=== PATIENT | male | born 1965 | race Caucasian/White ===

== ENCOUNTER 2020-03-16 02:41 | Emergency (ER) | payer BC, SELFPAY ==
[2020-03-16] MEDS ORDERED: Ondansetron PF 4 MG/2 ML Vial ONE (03:13)
[2020-03-16] MEDS ORDERED: Ketorolac Tromethamine 30 MG/ML VIAL ONE (03:13)
[2020-03-16] MEDS ORDERED: Morphine 4 MG/ML VIAL ONE (03:13)
[2020-03-16 03:40] LABS: #Basophils 0.1 thou/uL (0.0-0.2); #Eosinphils 0.4 thou/uL (0.0-0.7); #Monocytes 0.7 thou/uL (0.11-0.59); %Basophils 0.8 % (0.0-1.0); %Eosinophils 4.6 % (0.0-10.0); %Lymphocytes 24.4 % (21.0-51.0); %Monocytes 8.3 % (0.0-10.0); %Neutrophils 61.8 % (42.0-75.0); Hemoglobin 15.2 g/dL (14.0-18.0); Mean Corpuscular HGB CONC 34.5 g/dL (32.0-36.0); Mean Corpuscular Hemoglobin 31.4 pg (27.0-31.0); Mean Corpuscular Volume 90.9 fL (78.0-98.0); Mean Platelet Volume 7.7 fL (7.4-10.4); Platelet Count 257 thou/uL (130-400); RBC Distribution Width 12.3 % (11.5-14.5); Red Blood Cell (RBC) Count 4.84 mill/uL (4.70-6.10); White Blood Cell (WBC) Count 8.1 thou/uL (4.8-10.8)
[2020-03-16 04:06] LABS: ALT (SGPT) 16 U/L (8-55); AST (SGOT) 20 U/L (5-34); Alkaline Phosphatase 78 U/L (40-110); Anion Gap 12 mmol/L (10-20); BUN (Urea Nitrogen) 13 mg/dL (8.4-25.7); Bilirubin, Total 0.3 mg/dL (0.2-1.2); Calc. Creatinine Clearance 0 mL/min (70-130); Calcium 9.1 mg/dL (7.8-10.44); Carbon Dioxide 26 mmol/L (22-29); Chloride 105 mmol/L (98-107); Estimated GFR-MDRD 78; Globulin 2.9 g/dL (2.4-3.5); Glucose 97 mg/dL (70-105); Lipase 15 U/L (8-78); Protein, Total 6.9 g/dL (6.0-8.3); Sodium 139 mmol/L (136-145)
--- NOTE | 2020-03-16 08:25 | CT ---
PRELIMINARY REPORT/[facility]/EMERGENCY AFTER HOURS PROCEDURE: EXAM: CT Abdomen and Pelvis with Intravenous Contrast CLINICAL HISTORY: Patient complains of onset of left lower quadrant abdominal pain 3 days, continuous, gradually worsen ing. No fever, no nausea or vomiting. He states he is a history of diverticulitis with similar presen tations. He started taking Ciprofloxacillin and Flagyl 2 days ago but states that the pain is getting worse and he is concerned something is getting worse in his abdomen. No urinary symptoms. No diarrhe a. TECHNIQUE: Axial computed tomography images of the abdomen and pelvis with intravenous contrast. CONTRAST: With; ISOVUE 370,100mL COMPARISON: None provided. FINDINGS: LUNG BASES: No basilar airspace consolidation or pleural effusion. LIVER: Unremarkable. GALLBLADDER AND BILE DUCTS: Unremarkable. No calcified stone. No ductal dilation. PANCREAS: Unremarkable. SPLEEN: Unremarkable. ADRENAL GLANDS: Unremarkable. KIDNEYS, URETERS, AND BLADDER: Unremarkable. No hydronephrosis or nephrolithiasis. No ureteral or bladder calculi. STOMACH AND BOWEL: Colonic diverticulosis. There is focal fat stranding surrounding a diverticulum adjacent to the dista l descending/proximal sigmoid colon with mild underlying mural thickening compatible with acute diver ticulitis. No free air. APPENDIX: No CT evidence for appendicitis. PERITONEUM: No free fluid. No free air. LYMPH NODES: No lymphadenopathy. REPRODUCTIVE: Unremarkable as visualized. VASCULATURE: Scattered atherosclerotic calcifications of the aorta. BONES: Grade 2 anterolisthesis of L5 on S1 with bilateral L5 spondylolysis. ABDOMINAL WALL AND SOFT TISSUES: Small bilateral fat containing inguinal hernias. IMPRESSION: Acute diverticulitis of the distal descending/proximal sigmoid colon. No free air or drainable fluid collection. ELECTRONICALLY SIGNED BY: Imani Duran MD Mar 16, 2020 4:24:01 AM CDT This report is intended for review by the ordering physician only, in accordance of law. If you recei ve this report in error, please call [facility] at [phone]. FINAL REPORT ABDOMEN AND PELVIC CT SCAN WITH IV CONTRAST EMERGENCY AFTER HOURS EXAM [id number] HOURS 03/16/2020 FINDINGS/IMPRESSION: Scattered colonic diverticulosis with some minimal focal acute diverticulitis without evidence for ex traluminal gas or drainable abscess. Grade I/II anterolisthesis of L5 on S1. This report is in agreement with preliminary report by [facility]. POS: RRE
[2020-03-16] MEDS ORDERED: Iopamidol-370 76% 500 ML 1 ML ONE (13:42)
== END 2020-03-16 04:43 | disposition home or self-care (01) ==
LOC: ERS 02:41
DX: K57.32 Diverticulitis of large intestine without perforation or abscess without bleeding (principal)
CPT/HCPCS: 36415; 74177; 80053; 83690; 85025; 96374; 96375; J1885; J2270; J2405; Q9967